=== PATIENT | female | born 1955 | race Caucasian/White ===

== ENCOUNTER 2018-06-18 05:45 | Day surgery (SDC) | payer OTHER ==
[2018-06-18] MEDS ORDERED: CIPRO500 MG PO (11:07)
[2018-06-18] MEDS ORDERED: PERCOCET 5-3251 EACH PO (11:07)
[2018-06-18] MEDS ORDERED: NAPROXEN500 MG PO (11:07)
== END 2018-06-18 15:45 | disposition home or self-care (01) ==
LOC: CIR.AMB 05:45
DX: D27.1 Benign neoplasm of left ovary (principal); N83.291 Other ovarian cyst, right side

== ENCOUNTER 2018-11-19 10:02 | Outpatient (CLI) | payer OTHER ==
[~2018-11-19 10:02] MED LIST: CIPRO500 MG PO; NAPROXEN500 MG PO; PERCOCET 5-3251 EACH PO
== END 2018-11-19 10:32 | disposition home or self-care (01) ==
LOC: EKG 10:02
DX: K80.10 Calculus of gallbladder with chronic cholecystitis without obstruction (principal); Z01.810 Encounter for preprocedural cardiovascular examination; Z01.811 Encounter for preprocedural respiratory examination

== ENCOUNTER 2018-12-08 04:48 | Day surgery (SDC) | payer OTHER ==
[~2018-12-08] VITALS: Ht 154.9 cm; Wt 64.4 kg
[~2018-12-08 04:48] MED LIST changes: +MULTIPLE VITAM1 EACH PO; +PROBIOTIC1 EAC2 PO
== END 2018-12-08 11:35 | disposition home or self-care (01) ==
LOC: CIR.AMB 04:48 → EDSTATUS 09:12 → CIR.AMB 09:13 → SURH 12:12
DX: K80.10 Calculus of gallbladder with chronic cholecystitis without obstruction (principal)